=== PATIENT | male | born 1965 | race Caucasian/White ===

== ENCOUNTER 2019-09-25 20:05 | Emergency (ER) | payer BC ==
[~2019-09-25] VITALS: Ht 182.9 cm; Wt 149.7 kg
[~2019-09-25 20:05] MED LIST: AMOX500 PO; HYDACE5 PO; HYDCHL12.5 PO; TRIHYD253B PO
== END 2019-09-25 21:29 | disposition home or self-care (01) ==
LOC: ER 20:05
DX: S50.01XA Contusion of right elbow, initial encounter (principal); I10 Essential (primary) hypertension; E11.9 Type 2 diabetes mellitus without complications; F17.200 Nicotine dependence, unspecified, uncomplicated; Z88.8 Allergy status to other drugs, medicaments and biological substances; Z79.899 Other long term (current) drug therapy; W19.XXXA Unspecified fall, initial encounter
CPT/HCPCS: 73080; 99283-25

== ENCOUNTER 2021-11-25 13:34 | Inpatient (IN) | payer MEDICAID ==
[~2021-11-25] VITALS: Ht 182.9 cm; Wt 155.1 kg
[2021-11-25 14:12] LABS: BASOPHILS PERCENT AUTO 1 % (0-2); EOSINOPHILS ABSOLUTE AUTO 0.31 K/mm3 (0.00-0.68); EOSINOPHILS PERCENT AUTO 3 % (0-6); Hematocrit 51.1 % (37.0-53.0); Hemoglobin 17.3 g/dL (13.5-17.5); IMMATURE GRAN ABSOLUTE AUTO 0.09 K/mm3 (0.00-0.10); IMMATURE GRAN PERCENT AUTO 1 % (0-1); LYMPHOCYTES ABSOLUTE AUTO 2.58 K/mm3 (0.84-5.20); LYMPHOCYTES PERCENT AUTO 24 % (21-46); MONOCYTES ABSOLUTE AUTO 1.04 K/mm3 (0.16-1.47); MONOCYTES PERCENT AUTO 10 % (4-13); Mean Corpuscular HGB 30.8 pg (26.0-34.0); Mean Corpuscular HGB Conc 33.9 g/dL (31.5-36.5); Mean Corpuscular Volume 91 fL (80-100); NEUTROPHILS ABSOLUTE AUTO 6.73 K/mm3 (1.96-9.15); NEUTROPHILS PERCENT AUTO 62 % (41-73); Platelet Count 246 K/mm3 (150-400); RDW Coefficient Variation 14.2 % (11.7-14.2); RDW Standard Deviation 48.1 fL (35.1-46.3); Red Blood Cell Count 5.61 M/mm3 (4.30-5.90); White Blood Cell Count 10.85 K/mm3 (4.00-11.30)
[2021-11-25 14:22] LABS: Magnesium, Blood 1.9 mg/dL (1.6-2.4)
[2021-11-25 14:35] LABS: Anti-Xa UFH, PHA Monitoring <0.10 IU/mL; International Normalized Ratio 1.07; Prothrombin Time Results 11.2 Sec (9.7-11.5)
[2021-11-25 14:48] LABS: Albumin, Blood 4.3 g/dL (3.4-5.0); Albumin/Globulin Ratio 1.2 (0.8-1.8); Bilirubin, Total 0.6 mg/dL (0.1-1.0); Bun/Creatinine Ratio 14.2 (12.0-20.0); Calcium, Blood 9.6 mg/dL (8.5-10.1); Creatinine, Blood 1.34 mg/dL (0.60-1.20); Globulin, Blood 3.7 g/dL (2.2-4.0); Potassium, Blood 3.7 mmol/L (3.5-5.5)
--- NOTE | 2021-11-25 16:15 | NUR ---
RECEIVED PT FROM NERVE SPECIALIST S/P ANGIO. PT CURRENTLY A&OX4 AND DENIES CP OR SOB. PT REPORTS HX-HTN AND STENTS 2009. ECG SHOWS SR WITH FREQUENT PVC'S. SBP TRENDING 140-150'S/100-110'S. RIGHT RADIAL TR BAND IN PLACE. 15 CC TO CUFF-THERE IS A SMALL AMOUNT OF OLD BLOOD UNDER THE CUFF, BUT NO ACUTE BLEEDING OR HEMATOMA NOTED AT THIS TIME. LUNGS CLEAR. NO NOTED SOB OR COUGH. PT DENIES GI UPSET. PT DENIES THE NEED TO VOID AT THIS TIME. PT ORIENTED TO ROOM AND ICU PROCEDURE-CALL LIGHT WITHIN REACH.
--- NOTE | 2021-11-25 17:00 | NUR ---
DR. SWEENEY HERE TO SEE PT. UPDATE GIVEN. ME AWARE THAT BP REMAINS ELEVATED. NOW DOSE OF METOPROLOL GIVEN-SEE EMAR. 12 LEAD ECG DONE.
--- NOTE | 2021-11-25 18:29 | NUR ---
PT ATE 100% OF DINNER TRAY. PT DENIES CP OR SOB. PT HAS HAD SEVERAL RUNS OF VT THAT ARE NOT SUSTAINED AND FOR WHICH HE IS COMPLETELY ASYMPTOMATIC. TR BAND SITE UNCHANGED. NO ACUTE BLEEDING OR HEMATOMA. PT VOIDED VIA URINAL X 650 CC CLEAR, YELLOW. PT DENIES COMPLAINTS AT THIS TIME.
--- NOTE | 2021-11-25 19:00 | NUR ---
ASSUMED CARE ASSUMED CARE OF PATIENT. AWAKE AND ALERT, VISITING WITH . ORIENTED AND COOPERATIVE. PT IS ABLE TO REPOSITION SELF IN BED. DENIES C/O PAIN OR DISCOMFORT AT THIS TIME. MONITOR SHOWS IRREGULAR RHYTHM- SINUS WITH OCCASIONAL PVCs AND SHORT RUNS OF VTACH. PT IS ASYMPTOMATIC WITH THE VTACH. BP STABLE AT THIS TIME. RESPIRATIONS EVEN AND UNLABORED. RA SATS 97%. ABDOMEN DISTENDED, BUT PT STATES THIS IS NORMAL. URINAL AT BEDSIDE. RIGHT WRIST WITH RADIAL TR BAND IN PLACE. PER DAY SHIFT RN, THERE IS APPROXIMATELY 10CC AIR LEFT IN CUFF. PT C/O MILD TINGLING TO RIGHT THUMB AND INDEX FINGER. CMS INTACT OTHERWISE. SMALL AMOUNT OF OOZING NOTED AT SIGHT AND SMALL AMOUNT OF BRUISING. NO HEMATOMA NOTED. SEE SHIFT ASSESSMENT FOR FULL ASSESSMENT.
[2021-11-25] MEDS ORDERED: NITR.4SL SL (20:05)
[2021-11-26 05:44] LABS: BASOPHILS ABSOLUTE AUTO 0.06 K/mm3 (0.00-0.23); BASOPHILS PERCENT AUTO 1 % (0-2); EOSINOPHILS ABSOLUTE AUTO 0.25 K/mm3 (0.00-0.68); EOSINOPHILS PERCENT AUTO 3 % (0-6); Hematocrit 45.9 % (37.0-53.0); Hemoglobin 15.5 g/dL (13.5-17.5); IMMATURE GRAN ABSOLUTE AUTO 0.08 K/mm3 (0.00-0.10); IMMATURE GRAN PERCENT AUTO 1 % (0-1); LYMPHOCYTES ABSOLUTE AUTO 1.14 K/mm3 (0.84-5.20); LYMPHOCYTES PERCENT AUTO 15 % (21-46); MONOCYTES PERCENT AUTO 10 % (4-13); Mean Corpuscular HGB 30.4 pg (26.0-34.0); Mean Corpuscular HGB Conc 33.8 g/dL (31.5-36.5); Mean Corpuscular Volume 90 fL (80-100); Mean Platelet Volume 11.2 fL (9.1-12.4); NEUTROPHILS ABSOLUTE AUTO 5.16 K/mm3 (1.96-9.15); NEUTROPHILS PERCENT AUTO 70 % (41-73); Platelet Count 164 K/mm3 (150-400); RDW Coefficient Variation 14.3 % (11.7-14.2); RDW Standard Deviation 47.2 fL (35.1-46.3); White Blood Cell Count 7.39 K/mm3 (4.00-11.30)
--- NOTE | 2021-11-26 06:02 | NUR ---
SHIFT SUMMARY NO ACUTE CHANGES DURING NOC. SLEPT WHEN UNDISTURBED. DENIED C/O CHEST PAIN OR OTHER DISCOMFORT T/O SHIFT. VSS. REMAINS ON RA. PERIODS OF SLEEP APNEA NOTED, BUT SATS REMAINED STABLE. CONTINUES WITH SHORT RUNS OF VTACH AND IRREGULAR HR/PVCs. DENIES NAUSEA. VOIDS WITHOUT DIFFICULTY. RIGHT RADIAL SITE WITH SOME BRUISING NOTED. NO BLEEDING/NO HEMATOMA. DRSG C/D/I. ARM BOARD IN PLACE. WILL REPORT TO ONCOMING RN WHEN AVAILABLE.
[2021-11-26 06:06] LABS: Alanine Aminotransfer (ALT/SGP 46 U/L (12-78); Albumin, Blood 3.6 g/dL (3.4-5.0); Albumin/Globulin Ratio 1.1 (0.8-1.8); Alk Phos 84 U/L (50-136); Anion Gap 6 mmol/L (6-16); Aspartate Aminotrans (AST/SGOT 132 U/L (12-37); Bilirubin, Total 0.6 mg/dL (0.1-1.0); Blood Urea Nitrogen 15 mg/dL (8-24); Bun/Creatinine Ratio 18.4 (12.0-20.0); CHOL/HDL RATIO 8.8; CO2, Blood 25 mmol/L (21-32); Calcium, Blood 8.9 mg/dL (8.5-10.1); Chloride, Blood 106 mmol/L (98-108); Cholesterol 194 mg/dL (50-200); Creatinine, Blood 0.82 mg/dL (0.60-1.20); Globulin, Blood 3.2 g/dL (2.2-4.0); Glomerular Filtration Rate >60 (60-); Glucose, Blood 106 mg/dL (70-99); HDL Cholesterol 22 mg/dL (>39); LDL/HDL RATIO Unable to Calculate; Low Density Lipoprotein Chol Unable to Calculate mg/dL (0-110); Potassium, Blood 3.9 mmol/L (3.5-5.5); Sodium, Blood 137 mmol/L (136-145); Total Protein, Blood 6.8 g/dL (6.4-8.2); Triglycerides 675 mg/dL (30-160); Very Low Density Lipoprot Chol Unable to Calculate mg/dL (6-32)
--- NOTE | 2021-11-26 08:00 | NUR ---
PT A&OX4. DENIES CP OR SOB. ECG CONTINUES SR WITH RATE 60-70'S-FREQUENT PAC'S AND RUNS OF VTACH, BUT PT ASYMPTOMATIC. LUNGS CLEAR. SATS>90% ON RA. PT DENIES GI DISTRESS, BUT REPORTS POOR APPETITE. PT VOIDED 750 CC VIA URINAL-CLEAR, YELLOW URINE. RIGHT RADIAL SITE WITH CLEAR OCCLUSIVE DRESSING. SITE SOFT AND NON-TENDER WITH ONLY MILD BRUISING NOTED. PT VERBALIZING FRUSTRATION WITH THE SITUATION AND HIS EAGERNESS TO GO HOME TODAY.
--- NOTE | 2021-11-26 10:45 | NUR ---
TROPONIN SENSITIVITY [id number] PHONED TO . ORDER PLACED TO REPEAT IN AM.
--- NOTE | 2021-11-26 11:56 | NUR ---
PT DENIES PAIN OR SOB. STANDBY ASSIST OOB TO CHAIR FOR LUNCH-TOLERATED WELL. SB 116/79. ECG CONTINUES SR WITH RATE 70'S AND FREQUENT PVC'S NO NOTED VTACH. RIGHT RADIAL SITE STABLE-DRESSING C/D/I.
--- NOTE | 2021-11-26 13:44 | NUR ---
NO ACUTE CHANGES. PT DENIES COMPLAINTS AT THIS TIME. REPORT PHONED TO CARLENE MITCHELL IN PREP TO TRANSFER PT TO PCU.
--- NOTE | 2021-11-26 15:05 | NUR ---
PCU TRANSFER NOTE. PATIENT ARRIVED TO PCU VIA WHEELCHAIR. NEURO WNL. ALERT AND ORIENTED X4. PERRLA. DENIES NUMBNESS/TINGLNG. ABLE TO STAND AND MOVE FROM WHEELCHAIR TO BED IND. AND FAMILY MEMBER IN ROOM. ON ROOM AIR SATING ABOVE 94%. BP STABLE. NO TEMP. TELE SHOWING SINUS RHYTHM WITH OCCASIONAL PVC'S. DENIES CHEST PAIN/PRESSURE. RIGHT RADIAL SITE WNL. TEGADERM CHANGED. NO SIGNS OF BLEEDING OR HEMATOMA. REMAINS SOFT AND NONTENDER. DENIES ABDOMINAL PAIN/NAUSEA. DRINKING WATER AT THIS TIME. USING URINAL AT BEDSIDE. ORIENTED TO ROOM/UNIT AND CALL LIGHT. EDUCATION PROVIDED ON POST OP RADIAL SITE PRECAUTIONS. BED IN LOW LOCKED POSITION. CALL LIGHT IN REACH. WILL CONTINUE TO MONITOR.
--- NOTE | 2021-11-26 17:30 | NUR ---
SHIFT SUMMARY: NO ACUTE CHANGES, SEE PREVIOUS TRANSFER NOTE. PATIENT CONTINUES TO DENY CHEST PAIN/PRESSURE. NO EVENTS ON TELE. ECHO BEING DONE AT THIS TIME. BP AND HR STABLE. RIGHT RADIAL SITE WNL, NO CHANGES. ON ROOM AIR. TOELRATING PO DIET. TROP TRENDING DOWN. FAMILY AT BEDSIDE. CALL LIGHT IN REACH. WILL CONTINUE TO MONITOR AND REPORT OFF TO ONCOMING RN.
--- NOTE | 2021-11-27 05:54 | NUR ---
NO ACUTE EVENTS OVERNIGHT. SEE EMR FOR CHARTED ASSESSMENT, NO CHEST PAIN OR PRESSURE THROUGHOUT THE SHIFT. PERSISTENT HYPERTENSION. EDUCATION PROVIDED ON NEW MEDICATION BRILLINTA AND LIMB RESTRICTIONS POST HEART CATHETERIZATION. TROPONIN CONTINUES TO TREND DOWNWARD WITH A VALUE OF 4925 THIS MORNING.
--- NOTE | 2021-11-27 09:41 | NUR ---
AM NOTE PATIENT IS A&OX4. PLEASANT AND COOPERATIVE W CARE. VSS. TELE NSR 60'S. SPO2 >95% RA. DENIES CP/PRESSURE, SOB, N/V, NUMBNESS/TINGLING. INDEPENDENT W AMBULATION. WILL CONTINUE TO MONITOR.
[2021-11-27] MEDS ORDERED: ASPI81CH PO (11:10)
[2021-11-27] MEDS ORDERED: METO50 PO (11:10)
[2021-11-27] MEDS ORDERED: PRAV20 PO (11:11)
[2021-11-27] MEDS ORDERED: TICA90TA PO (11:11)
--- NOTE | 2021-11-27 12:08 | NUR ---
CLARFIFIED THE METOPROLOL ORDER WITH DR ACOSTA, THE PRESCRIOPTION 50MG BID BUT THE DISCHARGE INSTRUCTIONS SHOW 25 MG; CONTINUE WITH 50M BID.
--- NOTE | 2021-11-27 12:09 | NUR ---
DISCHARGE SUMMARY PATIENT RECEIVED EDUCATION ON FOLLOW UP APPOINTMENTS, MEDICATIONS, S/SX TO WATCH OUT FOR AND REPORT TO PCP. IV AND TELE REMOVED WNL. VSS. NO ACUTE CHAGES, NO CP/PRESSURE, SOB, N/V, NUBMNESS/TINGLING. PRESCRIPTION FAXED TO [facility] PER PATIENT REQUEST. EDUCATED ON F/U APPTS.
--- NOTE | 2021-11-27 12:14 | NUR ---
PT CURRENTLY DOES NOTE HAVE INSURANCE, DISCUSSED OPTIONS FOR BRILLANTA UNTIL JANUARY WHEN PT INSURANCE WILL RESTART. DR BRASHER AT BEDSIDE, ENCOURAGED PT TO COME TO OFFICE IF UNABLE TO AFFORD THE BRILLANTA.
--- NOTE | 2021-11-27 14:54 | NUR ---
I HAVE REVIEWED THE EDUCATION REVIEWER DOCUMENTATION AND AM IN AGREEMENT. THE RIGHT RADIAL SITE IS OPEN TO AIR, SLIGHT BRUISING NOTED, NO BLEEDING OR HEMATOMA NOTED. VSS. DR BRASHER AT [facility] THIS AFTERNOON.
== END 2021-11-27 12:00 | disposition home or self-care (01) | DRG 281 ==
LOC: ER 13:34 → ICUW 14:01 → PCU 11-26 14:02
PROVIDERS: Student in an Organized Health Care Education/Training Program; ADMIT Internal Medicine Cardiovascular Disease
PROC: 4A023N7 Measurement of Cardiac Sampling and Pressure, Left Heart, Percutaneous Approach (ICD-10-PCS; principal; 2021-11-25)
PROC: B2111ZZ Fluoroscopy of Multiple Coronary Arteries using Low Osmolar Contrast (ICD-10-PCS; 2021-11-25)
DX: I21.3 ST elevation (STEMI) myocardial infarction of unspecified site (principal); N17.9 Acute kidney failure, unspecified; Z68.42 Body mass index [BMI] 45.0-49.9, adult; I10 Essential (primary) hypertension; E11.9 Type 2 diabetes mellitus without complications; I25.2 Old myocardial infarction; E66.01 Morbid (severe) obesity due to excess calories; I25.10 Atherosclerotic heart disease of native coronary artery without angina pectoris; Z71.6 Tobacco abuse counseling; E78.5 Hyperlipidemia, unspecified; F17.210 Nicotine dependence, cigarettes, uncomplicated; Z79.82 Long term (current) use of aspirin; Z79.899 Other long term (current) drug therapy; Z88.8 Allergy status to other drugs, medicaments and biological substances
CPT/HCPCS: 36415; 76937; 80053; 80061; 83036; 83735; 84484; 85025; 85347; 85520; 85610; 85730; 86850; 86900; 86901; 92941; 93005; 93010; 93458; 99152; 99153; A9270; C1725; C1769; C1887; C1894; C8929; J0461; J1644; J1650; J2250; J3010; J7030; J7040; Q9957; Q9967